=== PATIENT | male | born 1955 | race Caucasian/White ===

== ENCOUNTER → 2024-10-01 | Outpatient (CLI) | payer MEDICARE, SELFPAY ==
--- NOTE | 2024-10-01 14:23 | NEURO ---
NCS and/or EMG Patient Report Ordering Doctor: Dayron Ford DATE OF SERVICE: 10/01/24 Juarez presents with numbness and tingling in the right hand. Electrodiagnostic findings: Right median motor nerve demonstrates prolonged distal latency with normal amplitude and conduction velocity. Normal right ulnar motor response. Normal median and ulnar F?waves. Prolonged right median sensory latency at the wrist. Needle EMG testing was performed in the right upper limb. All muscles tested showed no evidence of denervation with normal motor unit action potentials. Electrodiagnostic impression: This is an abnormal study of right upper limb 1. Electrodiagnostic findings suggestive of right-sided median mononeuropathy. This consistent with mild to moderate right carpal tunnel syndrome. Multi Select Codes Neurology Neurology Interp Codes: 69542-81 Musc test done w/n test comp (interp) and 17226-96 Nrv cndj tst 5-6 studies (interp)
== END | disposition home or self-care (01) ==
PROVIDERS: PCP Family Medicine; Referring Provider Physician Assistant; Visit Provider Physician Assistant
DX: R20.2 Paresthesia of skin (principal)
CPT/HCPCS: 95886; 95909